=== PATIENT | female | born 1940 | race Caucasian/White ===

== ENCOUNTER 2017-09-10 13:24 | Emergency (ER) | payer MEDICARE, BC ==
[~2017-09-10] VITALS: Ht 160 cm; Wt 96.6 kg
[2017-09-10 13:46] LABS: BASOPHILS # (AUTO) 0.1 X10'3 (0-0.2); BASOPHILS % (AUTO) 0.5 % (0-1); EOSINOPHILS # (AUTO) 0.3 X10'3 (0-0.9); EOSINOPHILS % (AUTO) 2.6 % (0-6); HEMATOCRIT 41.1 % (35.0-45.0); HEMOGLOBIN 13.8 g/dl (12.0-16.0); LYMPHOCYTES # (AUTO) 3.6 X10'3 (1.1-4.8); LYMPHOCYTES % (AUTO) 32.9 % (21-51); MEAN CORPUSCULAR HEMOGLOBIN 30.5 PG (27.0-31.0); MEAN CORPUSCULAR HGB CONC 33.5 % (33.0-36.5); MEAN PLATELET VOLUME 8.8 FL (7.4-10.4); MONOCYTES # (AUTO) 0.6 X10'3 (0-0.9); MONOCYTES % (AUTO) 5.8 % (2-12); NEUTROPHILS # (AUTO) 6.4 X10'3 (1.8-7.7); NEUTROPHILS % (AUTO) 58.2 % (42-75); PLATELET COUNT 269 X10'3 (140-440); RED BLOOD COUNT 4.52 X10'6 (4.20-5.60); RED CELL DISTRIBUTION WIDTH 14.4 % (11.5-14.5); WHITE BLOOD COUNT 11.1 X10'3 (4.5-11.0)
[2017-09-10 13:55] LABS: PARTIAL THROMBOPLASTIN TIME 27 SECONDS (22-32)
[2017-09-10] MEDS ORDERED: normal saline 1000ML IV soln IVB ONE (13:55)
[2017-09-10 13:59] LABS: ALANINE AMINOTRANSFERASE 30 U/L (12-78); ALBUMIN/GLOBULIN RATIO 1.2 (1.1-1.5); ALKALINE PHOSPHATASE 80 IU/L (46-116); ANION GAP 11 (8-16); ASPARTATE AMINO TRANSFERASE 14 U/L (10-37); BILIRUBIN,TOTAL 0.3 MG/DL (0.1-1.0); BLOOD UREA NITROGEN 18 MG/DL (7-18); BUN/CREATININE RATIO 17.6 (6.6-38.0); CALCIUM 9.9 MG/DL (8.5-10.1); CHLORIDE 104 MMOL/L (99-107); CREATININE 1.02 MG/DL (0.40-0.90); GLUCOSE 118 MG/DL (70-104); POTASSIUM 4.5 MMOL/L (3.5-5.1); SODIUM 141 MMOL/L (135-145); TOTAL CARBON DIOXIDE 25.8 MMOL/L (24-32); TOTAL PROTEIN 7.3 G/DL (6.4-8.2); eGFR 53 ML/MIN
[2017-09-10] MEDS ORDERED: sucralfate 1 gm tablet PO ONE (14:05)
[2017-09-10] MEDS ORDERED: famotidine/PF 10 mg/ml inj IV ONE (14:05)
[2017-09-10] MEDS ORDERED: mag hydrox/Alum hydrox/simeth 30ml oral suspension PO ONE (14:05)
[2017-09-10] MEDS ORDERED: LIDOcaine Viscous 15ml cup PO ONE (14:05)
[2017-09-10 15:55] LABS: CLARITY,URINE CLEAR (Clear); COLOR,URINE YELLOW (Yellow); GLUCOSE, URINE NEGATIVE (Neg); KETONES,URINE NEGATIVE (Neg); LEUKOCYTE ESTERASE ,URINE MODERATE (Neg); NITRITES, URINE NEGATIVE (Neg); OCCULT BLOOD,URINE TRACE-INTACT (Neg); PH,URINE 5.5 (4.8-8.0); PROTEIN,URINE NEGATIVE (Neg); UROBILINOGEN,URINE 0.2 E.U/dL (0.2-1.0)
[2017-09-10 15:59] LABS: UA COLLECTION TYPE CLN CATCH MIDSTREAM
[2017-09-10 16:04] LABS: BACTERIA,URINE NONE SEEN /HPF (Neg); RBC,URINE NONE SEEN /HPF (0-2); SQUAMOUS EPITHELIAL CELL,UR FEW /LPF (FEW); TRANSITIONAL EPI CELLS,URINE FEW /HPF
[2017-09-10] MEDS ORDERED: BACDS PO (16:06)
[2017-09-10 16:30] VITALS: BP 120/60
== END 2017-09-10 16:32 | disposition home or self-care (01) ==
LOC: ER 13:24
DX: N39.0 Urinary tract infection, site not specified (principal); E86.0 Dehydration; R00.0 Tachycardia, unspecified; Z88.5 Allergy status to narcotic agent
CPT/HCPCS: 36415; 71045; 80053; 81001; 83880; 84484; 85025; 85610; 85730; 87077; 87088; 87186; 93005; 96361; 96374; 99285; J3490; J7030

== ENCOUNTER 2018-01-01 05:49 | Day surgery (SDC) | payer MEDICARE, BC ==
[2017-12-31 14:47] LABS: BASOPHILS % (AUTO) 0.4 % (0-1); EOSINOPHILS # (AUTO) 0.2 X10'3 (0-0.9); EOSINOPHILS % (AUTO) 2.6 % (0-6); HEMATOCRIT 38.8 % (35.0-45.0); HEMOGLOBIN 13.3 g/dl (12.0-16.0); LYMPHOCYTES # (AUTO) 2.5 X10'3 (1.1-4.8); LYMPHOCYTES % (AUTO) 28.7 % (21-51); MEAN CORPUSCULAR HEMOGLOBIN 30.8 PG (27.0-31.0); MEAN CORPUSCULAR HGB CONC 34.2 % (33.0-36.5); MEAN PLATELET VOLUME 8.9 FL (7.4-10.4); MONOCYTES # (AUTO) 0.5 X10'3 (0-0.9); NEUTROPHILS # (AUTO) 5.5 X10'3 (1.8-7.7); NEUTROPHILS % (AUTO) 62.3 % (42-75); PLATELET COUNT 279 X10'3 (140-440); RED BLOOD COUNT 4.32 X10'6 (4.20-5.60); RED CELL DISTRIBUTION WIDTH 14.8 % (11.5-14.5); WHITE BLOOD COUNT 8.8 X10'3 (4.5-11.0)
[2017-12-31 14:58] LABS: ALBUMIN 3.8 G/DL (3.4-5.0); ANION GAP 10 (8-16); BLOOD UREA NITROGEN 20 MG/DL (7-18); BUN/CREATININE RATIO 19.8 (6.6-38.0); CALCIUM 9.6 MG/DL (8.5-10.1); CHLORIDE 104 MMOL/L (99-107); CREATININE 1.01 MG/DL (0.40-0.90); GLUCOSE 158 MG/DL (70-104); PARTIAL THROMBOPLASTIN TIME 27 SECONDS (22-32); POTASSIUM 4.7 MMOL/L (3.5-5.1); PROTHROMBIN TIME 10.3 SECONDS (9.0-12.0); SODIUM 139 MMOL/L (135-145); TOTAL CARBON DIOXIDE 25.2 MMOL/L (24-32); eGFR 53 ML/MIN
[~2018-01-01] VITALS: Ht 160 cm; Wt 95.5 kg
[2018-01-01] VITALS (13 sets, daily range): BP systolic 94–131; BP diastolic 47–95
[2018-01-01] MEDS ORDERED: diphenhydrAMINE 25mg capsule PO PRN (06:05)
[2018-01-01] MEDS ORDERED: normal saline 1000ml 1,000 ML IV SCH (06:05)
[2018-01-01] MEDS ORDERED: LORazepam 0.5 MG tablet PO PRN (06:05)
[2018-01-01] MEDS ORDERED: OMEG1CAP2 PO (07:26)
[2018-01-01] MEDS ORDERED: METO50TA17 PO (07:26)
[2018-01-01] MEDS ORDERED: LISI-600 PO (07:26)
[2018-01-01] MEDS ORDERED: ALLO300T2 PO (07:26)
[2018-01-01] MEDS ORDERED: SYN0.088T PO (07:26)
[2018-01-01] MEDS ORDERED: MULT-1085 PO (07:26)
[2018-01-01] MEDS ORDERED: METF500T PO (07:26)
[2018-01-01] MEDS ORDERED: GLIM4TAB79 PO (07:26)
[2018-01-01] MEDS ORDERED: ASPI81TA52 PO (07:26)
[2018-01-01] MEDS ORDERED: GABA-530 PO (07:26)
[2018-01-01] MEDS ORDERED: nitroGLYCERIN-Tridil 50MG/D5W 250 ML IV ONE (07:47)
[2018-01-01] MEDS ORDERED: heparin 1,000unit/ml 10ml vial 10 ML ONE (07:47)
[2018-01-01] MEDS ORDERED: LIDOcaine 1% w/EPI 1:100,000 30ml vial (MDV) ONE (07:47)
[2018-01-01] MEDS ORDERED: iohexol 350 MG/ML 50ML vial IV ONE (07:48)
[2018-01-01] MEDS ORDERED: iohexol 350MG/ML 100ml bottle IV ONE (07:48)
[2018-01-01] MEDS ORDERED: midazolam 2 mg/2 ml injection ONE (08:18)
[2018-01-01] MEDS ORDERED: fentaNYL/PF 50MCG/1 ML 2ML syringe ONE (08:18)
== END 2018-01-01 15:00 | disposition home or self-care (01) ==
LOC: SSTAY O 05:49
PROVIDERS: ATTEND Internal Medicine Cardiovascular Disease
DX: I25.10 Atherosclerotic heart disease of native coronary artery without angina pectoris (principal); I10 Essential (primary) hypertension; E78.5 Hyperlipidemia, unspecified; E66.9 Obesity, unspecified; E03.9 Hypothyroidism, unspecified; E11.42 Type 2 diabetes mellitus with diabetic polyneuropathy; Z98.41 Cataract extraction status, right eye; Z88.5 Allergy status to narcotic agent; Z68.37 Body mass index [BMI] 37.0-37.9, adult; Z98.42 Cataract extraction status, left eye; Z90.710 Acquired absence of both cervix and uterus; Z79.82 Long term (current) use of aspirin; Z79.84 Long term (current) use of oral hypoglycemic drugs; Z79.899 Other long term (current) drug therapy; Z98.890 Other specified postprocedural states
CPT/HCPCS: 36415; 80048; 82948; 85025; 85610; 85730; 93005; 93458; 99152; 99153; A6257; C1760; C1769; J1644; J2250; J3490; J7030; Q0163; Q9967; A4620; J3010

== ENCOUNTER 2018-12-20 19:22 | Inpatient (IN) | payer MEDICARE, BC ==
[~2018-12-20] VITALS: Ht 160 cm; Wt 96.8 kg
[~2018-12-20 19:22] MED LIST: ALLO300T2 PO; ASPI81TA52 PO; GABA-530 PO; GLIM4TAB79 PO; LISI-600 PO; METF500T PO; METO50TA17 PO; MULT-1085 PO; OMEG1CAP2 PO; SYN0.088T PO
[2018-12-20 19:42] LABS: BASOPHILS # (AUTO) 0.1 X10'3 (0-0.2); BASOPHILS % (AUTO) 0.7 % (0-1); EOSINOPHILS # (AUTO) 0.3 X10'3 (0-0.9); EOSINOPHILS % (AUTO) 2.7 % (0-6); HEMATOCRIT 39.8 % (35.0-45.0); LYMPHOCYTES # (AUTO) 3.3 X10'3 (1.1-4.8); LYMPHOCYTES % (AUTO) 28.5 % (21-51); MEAN CORPUSCULAR HEMOGLOBIN 29.7 PG (27.0-31.0); MEAN CORPUSCULAR HGB CONC 32.7 g/dL (33.0-36.5); MONOCYTES # (AUTO) 0.8 X10'3 (0-0.9); MONOCYTES % (AUTO) 7.1 % (2-12); PLATELET COUNT 288 X10'3 (140-440); RED BLOOD COUNT 4.37 X10'6 (4.20-5.60); WHITE BLOOD COUNT 11.5 X10'3 (4.5-11.0)
[2018-12-20] MEDS ORDERED: METF500T7 PO (19:49)
[2018-12-20] MEDS ORDERED: GABA-530 PO (19:50)
[2018-12-20] MEDS ORDERED: GABA100C PO (19:50)
[2018-12-20] MEDS ORDERED: LISI-600 PO (19:54)
[2018-12-20] MEDS ORDERED: LEVO50TA8 PO (19:54)
[2018-12-20] MEDS ORDERED: ASPI81TA52 PO (19:54)
[2018-12-20] MEDS ORDERED: GLIM2TAB2 PO (19:55)
[2018-12-20] MEDS ORDERED: ATOR10TA70 PO (19:57)
[2018-12-20 20:00] LABS: ALANINE AMINOTRANSFERASE 37 U/L (12-78); ALBUMIN 3.8 G/DL (3.4-5.0); ALBUMIN/GLOBULIN RATIO 1.1 (1.1-1.5); ALKALINE PHOSPHATASE 67 IU/L (46-116); ANION GAP 11 (8-16); ASPARTATE AMINO TRANSFERASE 20 U/L (10-37); BILIRUBIN,TOTAL 0.2 MG/DL (0.1-1.0); BLOOD UREA NITROGEN 19 MG/DL (7-18); BUN/CREATININE RATIO 15.3 (6.6-38.0); CHLORIDE 106 MMOL/L (99-107); CREATININE 1.24 MG/DL (0.40-0.90); GLUCOSE 137 MG/DL (70-104); POTASSIUM 4.5 MMOL/L (3.5-5.1); SODIUM 140 MMOL/L (135-145); TOTAL CARBON DIOXIDE 22.6 MMOL/L (24-32); TOTAL PROTEIN 7.2 G/DL (6.4-8.2); eGFR 42 ML/MIN
[2018-12-20 20:11] LABS: ETHANOL < 0.010 GM/DL (0.0-0.010); PHOSPHORUS 4.1 MG/DL (2.3-4.5)
[2018-12-20] MEDS ORDERED: magnesium 2GM in 50ml NS 50 ML IV ONE (20:25)
[2018-12-20] MEDS ORDERED: dextrose 5%-1/2 normal saline 1,000 ML IV SCH (20:45)
[2018-12-20] MEDS ORDERED: ondansetron/PF 4mg/2ml inj IV PRN (20:45)
[2018-12-20] MEDS ORDERED: morphine 2 MG/ML inj. syringe IV PRN ×2 (20:45)
[2018-12-20] MEDS ORDERED: acetaminophen 325mg tablet PO PRN (20:45)
[2018-12-20] MEDS ORDERED: mag hydrox/Alum hydrox/simeth 30ml oral suspension PO PRN (20:45)
[2018-12-20] MEDS ORDERED: magnesium hydroxide 30ml (MOM) UD suspension PO PRN (20:45)
--- NOTE | 2018-12-20 22:00 | NUR ---
received report from washer meat, pt transferred to ortho floor via [facility]. patient able to walk to her bed.
[2018-12-20] MEDS: normal saline 1000ml 1,000 ML IV SCH (22:18)
[2018-12-20 22:30] VITALS: BP 134/81
[2018-12-20] MEDS: gabapentin 100mg capsule PO SCH (22:46)
[2018-12-21 02:00] VITALS: BP 116/46
--- NOTE | 2018-12-21 02:30 | NUR ---
Dr. Dodson asked if the patient received any magnesium. I mentioned that she had 2 grams IV. He said he wanted it ti be rechecked in the am.
[2018-12-21 06:00] VITALS: BP 113/52
--- NOTE | 2018-12-21 06:30 | NUR ---
Patient in room ORTHO 4010. I have received report from Holger CLAY and had the opportunity to ask questions and assume patient care.
--- NOTE | 2018-12-21 06:34 | NUR ---
Problems reprioritized. Patient report given, questions answered & plan of care reviewed with Octavia CLAY.
[2018-12-21] MEDS ORDERED: magnesium 4gm in 100ml NS 100 ML IV PRN (06:40)
[2018-12-21] MEDS ORDERED: metFORMIN 500mg tablet PO SCH (07:30)
[2018-12-21] MEDS: OMEGA-3/DHA/EPA/FISH OIL 1 EACH CAPSULE.DR PO SCH (08:00)
[2018-12-21] MEDS: lisinopril 20mg tablet PO SCH (08:00)
[2018-12-21] MEDS ORDERED: glimepiride 1 MG tablet PO SCH (08:00)
[2018-12-21] MEDS: metoprolol tartrate 50mg tablet PO SCH ×2 (08:00→20:29)
[2018-12-21] MEDS: atorvastatin 10mg tablet PO SCH (08:19)
[2018-12-21] MEDS: gabapentin 100mg capsule PO SCH ×3 (08:19→20:30)
[2018-12-21] MEDS: levoTHYROXINE 25mcg tablet PO SCH (08:19)
[2018-12-21] MEDS: allopurinol 300 MG tablet PO SCH (08:19)
[2018-12-21] MEDS: aspirin 81mg tablet.DR PO SCH (08:19)
[2018-12-21] MEDS: multivitamins, therapeutics tablet PO SCH (08:19)
[2018-12-21] MEDS: enoxaparin 40mg/0.4ml syringe SUBCUT SCH (08:20)
[2018-12-21 09:12] LABS: ALANINE AMINOTRANSFERASE 35 U/L (12-78); ALBUMIN 3.3 G/DL (3.4-5.0); ALBUMIN/GLOBULIN RATIO 1.1 (1.1-1.5); ALKALINE PHOSPHATASE 56 IU/L (46-116); ANION GAP 11 (8-16); ASPARTATE AMINO TRANSFERASE 19 U/L (10-37); BILIRUBIN,TOTAL 0.3 MG/DL (0.1-1.0); BLOOD UREA NITROGEN 18 MG/DL (7-18); BUN/CREATININE RATIO 18.8 (6.6-38.0); CHLORIDE 106 MMOL/L (99-107); CHOL/HDL RATIO 3.1 (0.00-4.99); CHOLESTEROL 98 MG/DL (0-200); CREATININE 0.96 MG/DL (0.40-0.90); GLUCOSE 127 MG/DL (70-104); HDL CHOLESTEROL 32 MG/DL (35-60); LDL CHOLESTEROL 50 MG/DL (50-100); MAGNESIUM 1.1 MG/DL (1.5-2.4); POTASSIUM 4.6 MMOL/L (3.5-5.1); SODIUM 139 MMOL/L (135-145); TOTAL CARBON DIOXIDE 22.2 MMOL/L (24-32); TOTAL PROTEIN 6.4 G/DL (6.4-8.2); TRIGLYCERIDES 160 MG/DL (20-135); eGFR 57 ML/MIN
[2018-12-21 10:00] VITALS: BP 117/48
[2018-12-21] MEDS: magnesium Cl slow-release 64mg tablet PO PRN ×2 (10:17→20:30)
--- NOTE | 2018-12-21 10:43 | NUR ---
DM Consult A1C <7 and not appropriate for DM ed at this time. Addendum: 12/21/18 at [address] Amended: Links added.
[2018-12-21] MEDS: normal saline 1000ml 1,000 ML IV SCH ×2 (11:03→15:13)
[2018-12-21 14:00] VITALS: BP 105/46
[2018-12-21 18:00] VITALS: BP 130/53
[2018-12-21] MEDS ORDERED: MESSAGE TO PHARMACY PO ONE (18:15)
[2018-12-21] MEDS ORDERED: dextrose 50%-water 50ml dispensing syringe IV PRN ×2 (18:15)
[2018-12-21] MEDS ORDERED: glucagon, human recombinant 1mg kit SUBCUT PRN (18:15)
[2018-12-21] MEDS ORDERED: insulin Lispro (HumaLOG) vial - multi-dose SQ SCH (18:15)
[2018-12-21] MEDS ORDERED: dextrose ORAL solution 15 GM/59 ML bottle PO PRN ×2 (18:15)
[2018-12-21] MEDS ORDERED: insulin glargine (Lantus) pen - multi-dose SQ SCH (21:00)
[2018-12-21 22:00] VITALS: BP 127/47
[2018-12-22 02:00] VITALS: BP 141/60
--- NOTE | 2018-12-22 06:40 | NUR ---
RECEIVED REPORT FROM LIANET CLAY
[2018-12-22 06:44] VITALS: BP 136/60
[2018-12-22] MEDS: allopurinol 300 MG tablet PO SCH (08:24)
[2018-12-22] MEDS: OMEGA-3/DHA/EPA/FISH OIL 1 EACH CAPSULE.DR PO SCH (08:24)
[2018-12-22] MEDS: multivitamins, therapeutics tablet PO SCH (08:24)
[2018-12-22] MEDS: levoTHYROXINE 25mcg tablet PO SCH (08:25)
[2018-12-22] MEDS: aspirin 81mg tablet.DR PO SCH (08:25)
[2018-12-22] MEDS: lisinopril 20mg tablet PO SCH (08:25)
[2018-12-22] MEDS: metoprolol tartrate 50mg tablet PO SCH (08:25)
[2018-12-22] MEDS: gabapentin 100mg capsule PO SCH (08:25)
[2018-12-22] MEDS: atorvastatin 10mg tablet PO SCH (08:25)
[2018-12-22] MEDS: enoxaparin 40mg/0.4ml syringe SUBCUT SCH (08:26)
[2018-12-22 10:52] VITALS: BP 128/52
[2018-12-22] MEDS ORDERED: LORazepam 2 mg/ml vial IM ONE (12:55)
[2018-12-22] MEDS ORDERED: ASPI81TA52 PO ×2 (15:02→15:04)
== END 2018-12-22 16:00 | disposition home or self-care (01) | DRG 66 ==
LOC: ER 19:23 → ORTHO 4S 21:22 → OBSVTOIN 21:22 → ORTHO 4S 22:03
PROVIDERS: ADMIT Internal Medicine; ATTEND Hospitalist
DX: I63.9 Cerebral infarction, unspecified (principal); E03.9 Hypothyroidism, unspecified; E11.9 Type 2 diabetes mellitus without complications; E78.00 Pure hypercholesterolemia, unspecified; E78.5 Hyperlipidemia, unspecified; I95.1 Orthostatic hypotension; E83.42 Hypomagnesemia; F40.240 Claustrophobia; I08.1 Rheumatic disorders of both mitral and tricuspid valves; I10 Essential (primary) hypertension; M10.9 Gout, unspecified; Z79.82 Long term (current) use of aspirin; Z83.3 Family history of diabetes mellitus; Z90.710 Acquired absence of both cervix and uterus; Z88.5 Allergy status to narcotic agent; Z79.899 Other long term (current) drug therapy
CPT/HCPCS: 36415; 70450; 71045; 80053; 80061; 80320; 82948; 83036; 83735; 84100; 84443; 84484; 85025; 85651; 87070; 92508; 92616; 93005; 93306; 93880; 97162; 97530; 99285; G0378; J1650; J1815; J2060; J3475; J7030

== ENCOUNTER 2019-01-30 21:08 | Emergency (ER) | payer MEDICARE, BC ==
[~2019-01-30] VITALS: Ht 160 cm; Wt 108.0 kg
[~2019-01-30 21:08] MED LIST changes: +ATOR10TA70 PO; -GABA-530 PO; +GABA100C PO; +GLIM2TAB2 PO; -GLIM4TAB79 PO; +LEVO50TA8 PO; -METF500T PO; +METF500T7 PO; -SYN0.088T PO
[2019-01-30 23:05] LABS: BASOPHILS % (AUTO) 0.4 % (0-1); EOSINOPHILS # (AUTO) 0.3 X10'3 (0-0.9); EOSINOPHILS % (AUTO) 3.3 % (0-6); HEMATOCRIT 36.5 % (35.0-45.0); LYMPHOCYTES # (AUTO) 2.3 X10'3 (1.1-4.8); MEAN CORPUSCULAR HEMOGLOBIN 30.5 PG (27.0-31.0); MEAN CORPUSCULAR VOLUME 92.6 FL (78-98); MEAN PLATELET VOLUME 8.9 FL (7.4-10.4); MONOCYTES # (AUTO) 0.6 X10'3 (0-0.9); MONOCYTES % (AUTO) 7.1 % (2-12); NEUTROPHILS # (AUTO) 5.7 X10'3 (1.8-7.7); NEUTROPHILS % (AUTO) 63.2 % (42-75); PLATELET COUNT 234 X10'3 (140-440); RED BLOOD COUNT 3.94 X10'6 (4.20-5.60); RED CELL DISTRIBUTION WIDTH 14.4 % (11.5-14.5)
[2019-01-30 23:06] LABS: ALANINE AMINOTRANSFERASE 37 U/L (12-78); ALBUMIN 3.3 G/DL (3.4-5.0); ALKALINE PHOSPHATASE 53 IU/L (46-116); ANION GAP 10 (8-16); ASPARTATE AMINO TRANSFERASE 14 U/L (10-37); BILIRUBIN,TOTAL 0.2 MG/DL (0.1-1.0); BLOOD UREA NITROGEN 17 MG/DL (7-18); BUN/CREATININE RATIO 17.5 (6.6-38.0); CHLORIDE 107 MMOL/L (99-107); CREATININE 0.97 MG/DL (0.40-0.90); GLUCOSE 136 MG/DL (70-104); POTASSIUM 4.3 MMOL/L (3.5-5.1); SODIUM 142 MMOL/L (135-145); TOTAL CARBON DIOXIDE 24.9 MMOL/L (24-32); TOTAL PROTEIN 6.5 G/DL (6.4-8.2); eGFR 56 ML/MIN
[2019-01-31 01:35] VITALS: BP 121/60
== END 2019-01-31 01:59 | disposition home or self-care (01) ==
LOC: ER 21:09
DX: I49.9 Cardiac arrhythmia, unspecified (principal); I10 Essential (primary) hypertension; E11.9 Type 2 diabetes mellitus without complications; M10.9 Gout, unspecified; E78.00 Pure hypercholesterolemia, unspecified; Z88.5 Allergy status to narcotic agent; Z79.82 Long term (current) use of aspirin; Z79.84 Long term (current) use of oral hypoglycemic drugs; Z86.73 Personal history of transient ischemic attack (TIA), and cerebral infarction without residual deficits; Z79.899 Other long term (current) drug therapy
CPT/HCPCS: 36415; 80053; 82948; 84484; 85025; 85610; 93005; 99284

== ENCOUNTER 2021-11-26 03:17 | Emergency (ER) | payer MEDICARE, BC ==
[~2021-11-26] VITALS: Ht 160 cm; Wt 100.0 kg
[~2021-11-26 03:17] MED LIST changes: -GLIM2TAB2 PO; +GLIM2TAB6 PO; -LISI-600 PO; +LISI20TA28 PO; +METF-900 PO; -METF500T7 PO
[2021-11-26] MEDS ORDERED: ondansetron/PF 4mg/2ml inj IV ONE (03:45)
[2021-11-26] MEDS ORDERED: METO50TA16 PO (03:45)
[2021-11-26] MEDS ORDERED: KETO15CR2 TOP (03:45)
[2021-11-26] MEDS ORDERED: normal saline 1000ML IV soln IVB ONE (03:45)
[2021-11-26] MEDS ORDERED: GABA-530 PO (03:45)
[2021-11-26] MEDS ORDERED: ALLO300T8 PO (03:45)
[2021-11-26] MEDS ORDERED: pantoprazole 40MG/NS 100ML BAG 100 ML IV ONE (03:50)
--- NOTE | 2021-11-26 04:16 | NUR ---
18G PIV started right forearm 1 attempt. Blood drawn from same site, labeled and walked to lab. Pt loly. well, remained pink, bed in lowest position, wheels locked, warm blankets, call mcdaniel in reach. IVF infusing well no complication or adverse.
[2021-11-26 04:22] LABS: BASOPHILS % (AUTO) 0.1 % (0-1); EOSINOPHILS % (AUTO) 0.1 % (0-6); HEMATOCRIT 37.6 % (35.0-45.0); LYMPHOCYTES # (AUTO) 1.2 X10'3 (1.1-4.8); LYMPHOCYTES % (AUTO) 8.3 % (21-51); MEAN CORPUSCULAR HEMOGLOBIN 29.6 PG (27.0-31.0); MEAN CORPUSCULAR HGB CONC 31.9 g/dL (33.0-36.5); MEAN CORPUSCULAR VOLUME 92.8 FL (78-98); MEAN PLATELET VOLUME 8.9 FL (7.4-10.4); MONOCYTES # (AUTO) 0.9 X10'3 (0-0.9); MONOCYTES % (AUTO) 6.1 % (2-12); NEUTROPHILS # (AUTO) 12.6 X10'3 (1.8-7.7); NEUTROPHILS % (AUTO) 85.4 % (42-75); PLATELET COUNT 220 X10'3 (140-440); RED BLOOD COUNT 4.05 X10'6 (4.20-5.60); RED CELL DISTRIBUTION WIDTH 14.8 % (11.5-14.5); WHITE BLOOD COUNT 14.7 X10'3 (4.5-11.0)
[2021-11-26 04:41] LABS: ALANINE AMINOTRANSFERASE 25 U/L (12-78); ALBUMIN 3.5 G/DL (3.4-5.0); ALKALINE PHOSPHATASE 57 IU/L (46-116); ANION GAP 12 (8-16); ASPARTATE AMINO TRANSFERASE 21 U/L (10-37); BILIRUBIN,TOTAL 0.4 MG/DL (0.1-1.0); BLOOD UREA NITROGEN 27 MG/DL (7-18); BUN/CREATININE RATIO 25.2 (6.6-38.0); CALCIUM 9.2 MG/DL (8.5-10.1); CHLORIDE 105 MMOL/L (99-107); CREATININE 1.07 MG/DL (0.40-0.90); GLUCOSE 186 MG/DL (70-104); SODIUM 136 MMOL/L (135-145); TOTAL CARBON DIOXIDE 18.9 MMOL/L (24-32); TOTAL PROTEIN 7.1 G/DL (6.4-8.2); eGFR 49 ML/MIN
[2021-11-26 04:45] LABS: LIPASE 99 U/L (73-393)
[2021-11-26 04:46] LABS: POTASSIUM 5.6 MMOL/L (3.5-5.1)
[2021-11-26 05:33] LABS: CLARITY,URINE CLEAR (Clear); COLOR,URINE YELLOW (Yellow); GLUCOSE, URINE NEGATIVE (Neg); KETONES,URINE 15 mg/dl (Neg); LEUKOCYTE ESTERASE ,URINE NEGATIVE (Neg); NITRITES, URINE NEGATIVE (Neg); OCCULT BLOOD,URINE NEGATIVE (Neg); PH,URINE 5.5 (4.8-8.0); PROTEIN,URINE NEGATIVE (Neg); UROBILINOGEN,URINE 0.2 E.U/dL (0.2-1.0)
[2021-11-26 05:37] LABS: UA COLLECTION TYPE NON-SPECIFIED
--- NOTE | 2021-11-26 06:07 | NUR ---
Handoff report to dayshift RN.
[2021-11-26] MEDS ORDERED: LOPE2CAP PO (07:42)
[2021-11-26] MEDS ORDERED: ONDA8TAB13 PO (07:42)
[2021-11-26] MEDS ORDERED: pantoprazole 40 MG vial IV SCH (08:00)
[2021-11-26 08:17] VITALS: BP 104/48
== END 2021-11-26 08:20 | disposition home or self-care (01) ==
LOC: ER 03:18
DX: R19.7 Diarrhea, unspecified (principal); R11.2 Nausea with vomiting, unspecified; K30 Functional dyspepsia; E78.00 Pure hypercholesterolemia, unspecified; I10 Essential (primary) hypertension; E11.9 Type 2 diabetes mellitus without complications; M10.9 Gout, unspecified; Z86.73 Personal history of transient ischemic attack (TIA), and cerebral infarction without residual deficits; Z88.5 Allergy status to narcotic agent; Z79.82 Long term (current) use of aspirin; Z79.899 Other long term (current) drug therapy
CPT/HCPCS: 36415; 71045; 74176; 80053; 81003; 82948; 83690; 84484; 85025; 93005; 96374; 96375; 99285; C9113; J2405; J7030